=== PATIENT | male | born 1935 | race Caucasian/White ===

== ENCOUNTER → 2021-12-14 10:53 | Outpatient (CLI) | payer MEDICARE, OTHER, SELFPAY ==
[2021-12-14 11:57] LABS: COVID19 -Nasal RAPID Negative (Negative)
== END ==
PROVIDERS: PCP Nurse Practitioner Adult Health; Visit Provider Surgery
DX: Z20.822 Contact with and (suspected) exposure to COVID-19 (principal); Z01.812 Encounter for preprocedural laboratory examination
CPT/HCPCS: 87635; C9803

== ENCOUNTER 2021-12-15 10:34 | Day surgery (SDC) | payer MEDICARE, OTHER, SELFPAY ==
--- NOTE | 2021-12-15 | PATH_ITS ---
[facility] Accession Number: [id number] . 01 Material submitted: . stomach - ANTRUM BODY . 01 Clinical history: . FOR GASTRITIS . 02 Diagnosis: Stomach, Body, Biopsy: Antral and body-type mucosa with mild chronic gastritis. Negative for Helicobacter by immunohistochemistry. Negative for intestinal metaplasia. Negative for dysplasia and malignancy. [facility] 12/20/2021 1250 Local . 02 Diagnosis provided by: . Ginna Hunter MD, Pathologist NPI- [id number] . 01 Electronically signed: . Ginna Hunter MD, Pathologist NPI- [id number] . 01 Gross description: . ANTRUM BODY: Received in formalin are 4 fragment(s) of vasquez, soft tissue measuring 0.3 x 0.2 x 0.2 cm to 0.1 x 0.1 x 0.1 cm submitted entirely in 1 cassette(s) /CPE 12/16/2021 0833 Local . 02 Microscopic: . An immunohistochemical stain was performed to evaluate for Helicobacter organisms and is negative. An alcian blue stain was performed to evaluate for intestinal metaplasia and is negative. Both control stains showed appropriate reactivity. . * This test was developed and its performance characteristics determined by [facility], [place]. It has not been cleared or approved by the U.S. Food and Drug Administration. The FDA has determined that such clearance or approval is not necessary. This test is used for clinical purposes. It should not be regarded as investigational or for research. . 02 Pathologist provided ICD-10: R10.13 . 02 CPT . 503877, A26086, 431629 Specimen Comment: A courtesy copy of this report has been sent to [phone] Performed at: [address] [place] [address] [address] [address], [place], [place] [id number] MD Joni Esteban MD Phone: [phone] Performed at: [id number] [place] [id number] MD Ginna Hunter MD Phone: [phone]
[2021-12-15 11:48] VITALS: BP 136/69; PULSE 69; RESP 18; TEMP 36.5; O2SAT 99
[2021-12-15 11:50] VITALS: BMI 23.0
[2021-12-15] MEDS: SODIUM CHLORIDE 0.9% 1,000 ML 70 ML IV (12:26)
--- NOTE | 2021-12-15 13:25 | PM.HP.1 ---
History of Present Illness History of Present Illness Date Patient Seen: 12/15/21 Time Patient Seen: 13:20 Chief complaint: EGD Narrative: Patient is a very pleasant 86-year-old male who presented for upper endoscopy. He has had epigastric pain and a history of pancreatitis. Patient History Medical History BPH (benign prostatic hyperplasia) CVA (cerebral vascular accident) (~2018) Heartburn Hernia QAGAN TAYAGUNGIN (hard of hearing) Hyperlipemia Pancreatitis Renal calculi Seizures Tonsillectomy planned Family & Social History Social History: household members none Tobacco & Substance use: Smoking Status Never smoker alcohol intake current Substance Use Type does not use Meds Home Medications and Allergies Home Medications Medication Instructions Recorded Confirmed Type aspirin 325 mg capsule 325 mg PO DAILY 12/15/21 12/15/21 History atorvastatin 80 mg tablet 80 mg DAILY 12/15/21 12/15/21 History levetiracetam 1,000 mg tablet 1,000 mg PO BID 12/15/21 12/15/21 History (Keppra) lisinopril 5 mg tablet 5 mg DAILY 12/15/21 12/15/21 History omeprazole DAILY 12/15/21 History tamsulosin 0.4 mg capsule 0.4 mg PO DAILY 12/15/21 12/15/21 History Allergies Allergy/AdvReac Type Severity Reaction Status Date / Time No Known Drug Allergies Allergy Verified 12/14/21 16:11 Review of Systems Review of Systems ROS: Yes All systems reviewed with the patient and are negative except as otherwise documented Exam Vital Signs (past 8 hours): - 12/15/21 11:48 Temperature 97.7 F Pulse Rate 69 Respiratory Rate 18 Blood Pressure 136/69 Pulse Oximetry 99 Oxygen Delivery Method Room Air Const General: cooperative, healthy appearing, comfortable, well developed, well groomed and No acute distress HENKY Head: normocephalic and atraumatic Resp Effort & Inspection: normal respiratory effort and able to speak in complete sentences Auscultation: clear to auscultation bilaterally Cardio Rate: regular rate Rhythm: regular rhythm GI Palpation: soft and No rigid Extrem General: no clubbing, cyanosis or edema Assessment & Plan Assessment & Plan narrative: 1. Epigastric abdominal pain 2. History of pancreatitis EGD today, further recommendations to follow Time Spent With Patient Critical Care time: I spent a total of [] minutes of critical care time on this patient's care today; this time is exclusive of procedural time.
[2021-12-15 13:42] VITALS: BP 108/43; PULSE 56; RESP 16; TEMP 36.3; O2SAT 97
--- NOTE | 2021-12-15 13:42 | PM.OP.EGD ---
Operative Date/Time/Diagnoses Date of procedure: 12/15/21 Time of procedure: 13:33 Procedure Notes Procedure in detail: Surgeon: Sloane Pederson DO Procedure: Esophagogastroduodenoscopy with biopsy Preoperative diagnosis: 1. Epigastric abdominal pain 2. History of pancreatitis Postoperative diagnosis: 1. Mild gastritis 2. Small hiatal hernia 3. Normal-appearing esophagus 4. Normal-appearing duodenum Medications: Monitored anesthesia care Preanesthesia Assessment An H and P was performed/updated and the Px?s ASA class is 3. The procedure was discussed in detail with the patient. The potential risks and complications including infection, bleeding, missed lesions, perforation, need for surgery in case of perforation, prolonged hospital stay, and were explained. A brief question and answer period was allotted and once all questions were answered, informed consent was obtained. The patient was brought back to the procedure room and placed on standard monitoring. The patient?s vital signs were monitored continuously throughout the entire procedure. Prior to starting, a timeout was performed to confirm the patient?s identity, allergies, medications, and procedure. Procedure in detail The patient was placed in left lateral decubitus position and a bite block was inserted. The tip of the upper endoscope was placed into the mouth and advanced without difficulty under direct visualization into the esophagus. Esophagus: Normal appearing esophagus, Z-line regular at the GE junction Stomach: Small hiatal hernia Mild gastritis in the antrum, biopsy to rule out H pylori Duodenum: Normal-appearing duodenum, visualized ampulla was unremarkable The patient tolerated the procedure well and will be brought back to the recovery area to be discharged once criteria are met. Complications There were no complications and estimated blood loss was minimal. Recommendations: Resume previous diet Continue outPx medications Follow up pathology results An emergency contact number was given to the patient for any complications related to the procedure
[2021-12-15 13:47] VITALS: BP 110/56; PULSE 60; RESP 19; O2SAT 96
[2021-12-15 13:52] VITALS: BP 116/58; PULSE 59; RESP 18; O2SAT 98
[2021-12-15 13:57] VITALS: BP 105/59; PULSE 60; RESP 24; O2SAT 98
[2021-12-15 14:11] VITALS: BP 118/67; PULSE 63; RESP 14; TEMP 36.7; O2SAT 100
== END 2021-12-15 14:25 | disposition home or self-care (01) ==
PROVIDERS: PCP Nurse Practitioner Adult Health; Referring Provider Student in an Organized Health Care Education/Training Program; Visit Provider Student in an Organized Health Care Education/Training Program
PROC: 0DJ08ZZ Inspection of Upper Intestinal Tract, Via Natural or Artificial Opening Endoscopic (ICD-10-PCS; CPT 43235; principal; 2021-12-15 12:30)
DX: R10.13 Epigastric pain (principal); K44.9 Diaphragmatic hernia without obstruction or gangrene; K29.50 Unspecified chronic gastritis without bleeding
CPT/HCPCS: 43239; J2704

== ENCOUNTER → 2022-04-13 15:43 | Outpatient (CLI) | payer MEDICARE, OTHER, SELFPAY ==
--- NOTE | 2022-04-13 15:45 | DI.MRI.S_ITS ---
PROCEDURE: MR ABDOMEN WO CON INDICATIONS: Personal history of other diseases of the digestiv TECHNIQUE: Coronal HASTE through the abdomen, axial 2-D FLASH in- and [id number], and breath-hold T2 FSE with fat saturation through the biliary system and pancreas. Oblique coronal and axial thin-slice HASTE, radial thick-slab HASTE centered on the extrahepatic bile ducts. COMPARISON: None. FINDINGS: Image quality: Excellent. Pancreas and biliary system: Intra- and extra-hepatic biliary ducts are non dilated. Pancreas is normal in morphology, without adjacent soft tissue edema. Pancreatic duct is normal in caliber, without developmental anomalies. Gallbladder is not distended. No gallstones identified. Other solid organs: Liver is normal in size. Small T2 hyperintense cysts. Spleen is normal in size. No adrenal nodules. Both kidneys are normal in size, without hydronephrosis. Small T2 hyperintense cysts. Nodes and vessels: No retroperitoneal or mesenteric adenopathy by size criteria. Aorta and inferior vena cava are normal in size. Atherosclerotic plaque is present. Bowel and peritoneum: Unenhanced bowel loops are normal in caliber. Diverticulosis. No free fluid. Lung bases: No basal pleural effusions. Heart size is normal. Bones and soft tissues: No ventral hernias. Bone marrow is of normal overall signal. IMPRESSION: 1. No biliary or pancreatic ductal dilatation. 2. Gallbladder is not distended. No gallstones seen. 3. Small T2 hyperintense cysts in the liver and kidneys. 4. Diverticulosis. Dictated by: Jak Blackwood M.D. on 04/14/2022 at 10:20 Approved by: Jak Blackwood M.D. on 04/14/2022 at 10:26
== END ==
PROVIDERS: PCP Nurse Practitioner Adult Health; Referring Provider Student in an Organized Health Care Education/Training Program; Visit Provider Student in an Organized Health Care Education/Training Program
DX: R10.13 Epigastric pain (principal); Z87.19 Personal history of other diseases of the digestive system; N28.1 Cyst of kidney, acquired; K76.89 Other specified diseases of liver; K57.90 Diverticulosis of intestine, part unspecified, without perforation or abscess without bleeding
CPT/HCPCS: 74181